=== PATIENT | male | born 1960 | race African-American/Black ===

== ENCOUNTER → 2017-03-27 | Emergency (ER) | payer SELFPAY | LOC: NAV ERS 06:57 | DX: M25.562 Pain in left knee (principal) | CPT/HCPCS: 99283 ==

== ENCOUNTER 2023-10-17 15:21 | Outpatient (CLI) | payer OTHER | END 2023-10-17 15:22 | disposition home or self-care (01) | LOC: NAV RAD 15:21 | PROVIDERS: ATTEND Nurse Practitioner Family | DX: M16.12 Unilateral primary osteoarthritis, left hip (principal); M87.852 Other osteonecrosis, left femur; M21.852 Other specified acquired deformities of left thigh ==